=== PATIENT | male | born 1930 | race Caucasian/White ===

== ENCOUNTER 2016-07-02 11:43 | Emergency (ER) | payer OTHER ==
[~2016-07-02] VITALS: Ht 182.9 cm; Wt 90.0 kg
[~2016-07-02 11:43] MED LIST: COUM2.5T PO; METO50CR PO; NITR.4 SL; OMEP20TA39 PO
[2016-07-02 11:49] VITALS: BP 136/83; PULSE 121; RESP 12; TEMP 97.9; O2SAT 97
--- NOTE | 2016-07-02 12:36 | PD ---
HPI Chief Complaint: Injury Time Seen by Provider: 12:34 Travel History International Travel<30 days: No Contact w/Intl Traveler<30days: No Traveled to known affect area: No History of Present Illness HPI 85-year-old male presents to the emergency department for evaluation of right wrist injury that occurred on Thursday. He states that his life is falling and he was caught her and hit his wrist against the dresser. He has had worsening pain since then. Patient denies any fevers. He reports a history of hypertension and A. fib. He states he is currently on Coumadin. Patient reports increasing redness and warmth to the right wrist. Patient denies any other injuries or complaints at this time. PFSH Past Medical History Hx Anticoagulant Therapy: Yes (COUMADIN) Asthma: No Atrial Fibrillation: Yes Blood Disorders: No Anxiety: No Depression: No Heart Rhythm Problems: Yes (A FIB) Cancer: No Cardiovascular Problems: Yes High Cholesterol: Yes Chemotherapy: No Chest Pain: No Congestive Heart Failure: No COPD: No Diabetes: No Endocrine: Yes GERD: Yes Genitourinary: No Hypertension: Yes Immune Disorder: No Musculoskeletal: Yes (BACK PAIN FROM RECENT FALL) Neurologic: No Psychiatric: No Reproductive: No Respiratory: No Radiation Therapy: No Sleep Apnea: No Thyroid Disease: Yes Past Surgical History Body Medical Devices: PACER Pacemaker: Yes Social History Alcohol Use: No Tobacco Use: No Substance Use: No Allergies-Medications (Allergen,Severity, Reaction): Coded Allergies: No Known Allergies (Unverified , 07/02/16) Reported Meds & Prescriptions Reported Meds & Active Scripts Active Nitroglycerin Tab 0.4 Mg Sl (Nitroglycerin) 0.4 Mg Subl 0.4 Mg SL Q5M PRN If you develop chest pain, take 1 tablet, if unresolved, take another tab in 5 minutes, if it continues, take 1 more and call 911. Reported Levothyroxine (Levothyroxine Sodium) 25 Mcg Tab 25 Mcg PO DAILY Coumadin 2.5 mg (Warfarin Sodium) Warfarin Sodium 2.5 mg Tab 1 Tab PO DAILY Metoprolol Succinate ER 50 mg (Metoprolol Succinate) 50 Mg Tab 37.5 Tab PO BID Hm Omeprazole (Omeprazole) 20 Mg Tab 20 Mg PO DAILY Review of Systems Except as stated in HPI: all other systems reviewed are Neg Physical Exam Narrative GENERAL: Well-developed well-nourished elderly male patient, ambulatory. Afebrile. SKIN: Warm and dry. Patient has erythema and warmth from the MCP joints to the mid forearm with tenderness to palpation. HEAD: Normocephalic. Atraumatic. EYES: No scleral icterus. No injection or drainage. NECK: Supple, trachea midline. No JVD or lymphadenopathy. CARDIOVASCULAR: Regular rate and rhythm without murmurs, gallops, or rubs. RESPIRATORY: Breath sounds equal bilaterally. No accessory muscle use. Lungs sounds clear to auscultation. GASTROINTESTINAL: Abdomen soft, non-tender, nondistended. MUSCULOSKELETAL: No cyanosis, or edema. BACK: No CVA tenderness. No rash. Data Data Last Documented VS Vital Signs Date Time Temp Pulse Resp B/P Pulse Ox O2 Delivery O2 Flow Rate FiO2 07/02/16 11:49 97.9 121 12 136/83 97 Room Air Orders Complete Blood Count With Diff (07/02/16 12:33) Basic Metabolic Panel (Bmp) (07/02/16 12:33) Prothrombin Time / Inr (Pt) (07/02/16 12:33) Act Partial Throm Time (Ptt) (07/02/16 12:33) Wrist, Complete ([id number]) (07/02/16 ) Hand, Complete ([id number]) (07/02/16 ) Electrocardiogram (07/02/16 ) Splinting (07/02/16 ) Labs Laboratory Tests Test 07/02/16 12:55 White Blood Count 12.0 TH/MM3 Red Blood Count 5.01 MIL/MM3 Hemoglobin 16.0 GM/DL Hematocrit 47.2 % Mean Corpuscular Volume 94.2 FL Mean Corpuscular Hemoglobin 32.0 PG Mean Corpuscular Hemoglobin 34.0 % Concent Red Cell Distribution Width 13.3 % Platelet Count 216 TH/MM3 Mean Platelet Volume 8.6 FL Neutrophils (%) (Auto) 75.4 % Lymphocytes (%) (Auto) 15.7 % Monocytes (%) (Auto) 8.1 % Eosinophils (%) (Auto) 0.4 % Basophils (%) (Auto) 0.4 % Neutrophils # (Auto) 9.1 TH/MM3 Lymphocytes # (Auto) 1.9 TH/MM3 Monocytes # (Auto) 1.0 TH/MM3 Eosinophils # (Auto) 0.1 TH/MM3 Basophils # (Auto) 0.0 TH/MM3 CBC Comment DIFF FINAL Differential Comment Prothrombin Time 29.4 SEC Prothromb Time International 2.6 RATIO Ratio Activated Partial 44.0 SEC Thromboplast Time Sodium Level 137 MEQ/L Potassium Level 4.2 MEQ/L Chloride Level 104 MEQ/L Carbon Dioxide Level 24.3 MEQ/L Anion Gap 9 MEQ/L Blood Urea Nitrogen 15 MG/DL Creatinine 1.41 MG/DL Estimat Glomerular Filtration 48 ML/MIN Rate Random Glucose 139 MG/DL Calcium Level 8.8 MG/DL [facility] Medical Decision Making Medical Screen Exam Complete: Yes Emergency Medical Condition: Yes Medical Record Reviewed: Yes Differential Diagnosis Fracture versus cellulitis versus septic joint Narrative Course 85-year-old male presents to the emergency department for evaluation of worsening right wrist pain after he hit it against a dresser on Thursday. Physical exam reveals erythema and warmth over the right wrist and hand. CBC, BMP, PTT, PT/INR ordered and pending. X-ray of the right wrist and right hand are ordered and pending. Workup is initiated in triage. Patient will be moved to medical pod for further evaluation and disposition. Marion Agosto Jul 02, 2016 12:36
[2016-07-02 13:41] LABS: AUTOMATED NEUTROPHIL # 9.1 TH/MM3 (1.8-7.7); BASOPHIL % 0.4 % (0.0-2.0); EOSINOPHIL # 0.1 TH/MM3 (0-0.4); EOSINOPHIL % 0.4 % (0.0-4.0); HEMATOCRIT 47.2 % (39.0-51.0); HEMO FLAGS DIFF FINAL; LYMPH % 15.7 % (9.0-44.0); LYMPHOCYTE # 1.9 TH/MM3 (1.0-4.8); MEAN CELL VOLUME 94.2 FL (80.0-100.0); MONO % 8.1 % (0.0-8.0); NEUT % 75.4 % (16.0-70.0); PLATELET COUNT 216 TH/MM3 (150-450); RED BLOOD COUNT 5.01 MIL/MM3 (4.50-5.90); RED CELL DISTRIBUTION WIDTH 13.3 % (11.6-17.2)
--- NOTE | 2016-07-02 13:46 | RADRPT ---
EXAM DATE/TIME: 07/02/2016 12:53 [facility] COMPARISON: No previous studies available for comparison. INDICATIONS : Right wrist pain, fall. MEDICAL HISTORY : None. SURGICAL HISTORY : None. ENCOUNTER: Initial ACUITY: 1 day PAIN SCORE: 9/10 LOCATION: Right wrist FINDINGS: There are degenerative changes evident. Alignment is anatomic. Fracture is not appreciated. CONCLUSION: Degenerative changes without fracture. Darin Self MD FACR on July 02, 2016 at 13:15 Board Certified Radiologist. This report was verified electronically.
--- NOTE | 2016-07-02 13:47 | RADRPT ---
EXAM DATE/TIME: 07/02/2016 12:49 [facility] COMPARISON: No previous studies available for comparison. INDICATIONS : Right hand pain, fall. MEDICAL HISTORY : None. SURGICAL HISTORY : None. ENCOUNTER: Initial ACUITY: 1 day PAIN SCORE: 6/10 LOCATION: Right lateral hand FINDINGS: There is a nondisplaced fracture of the radial styloid. Degenerative changes are seen in radial carp al joint. Degenerative changes are seen by the phalanges. CONCLUSION: Nondisplaced fracture of radial styloid. Darin Self MD FACR on July 02, 2016 at 13:14 Board Certified Radiologist. This report was verified electronically.
[2016-07-02 13:48] LABS: INTERNATIONAL NORMALIZED RATIO 2.6 RATIO; PROTHROMBIN TIME - PATIENT 29.4 SEC (9.8-11.6)
[2016-07-02 13:57] LABS: BICARBONATE 24.3 MEQ/L (21.0-32.0); POTASSIUM 4.2 MEQ/L (3.5-5.1)
--- NOTE | 2016-07-02 14:37 | PD ---
Data Data Last Documented VS Vital Signs Date Time Temp Pulse Resp B/P Pulse Ox O2 Delivery O2 Flow Rate FiO2 07/02/16 16:12 92 123/70 95 07/02/16 11:49 97.9 12 Room Air Orders Complete Blood Count With Diff (07/02/16 12:33) Basic Metabolic Panel (Bmp) (07/02/16 12:33) Prothrombin Time / Inr (Pt) (07/02/16 12:33) Act Partial Throm Time (Ptt) (07/02/16 12:33) Wrist, Complete ([id number]) (07/02/16 ) Hand, Complete ([id number]) (07/02/16 ) Electrocardiogram (07/02/16 ) Splinting (07/02/16 ) Fiberglass Splint Forearm Adul (07/02/16 ) Sling Cradle Arm (07/02/16 ) Labs Laboratory Tests Test 07/02/16 12:55 White Blood Count 12.0 TH/MM3 Red Blood Count 5.01 MIL/MM3 Hemoglobin 16.0 GM/DL Hematocrit 47.2 % Mean Corpuscular Volume 94.2 FL Mean Corpuscular Hemoglobin 32.0 PG Mean Corpuscular Hemoglobin 34.0 % Concent Red Cell Distribution Width 13.3 % Platelet Count 216 TH/MM3 Mean Platelet Volume 8.6 FL Neutrophils (%) (Auto) 75.4 % Lymphocytes (%) (Auto) 15.7 % Monocytes (%) (Auto) 8.1 % Eosinophils (%) (Auto) 0.4 % Basophils (%) (Auto) 0.4 % Neutrophils # (Auto) 9.1 TH/MM3 Lymphocytes # (Auto) 1.9 TH/MM3 Monocytes # (Auto) 1.0 TH/MM3 Eosinophils # (Auto) 0.1 TH/MM3 Basophils # (Auto) 0.0 TH/MM3 CBC Comment DIFF FINAL Differential Comment Prothrombin Time 29.4 SEC Prothromb Time International 2.6 RATIO Ratio Activated Partial 44.0 SEC Thromboplast Time Sodium Level 137 MEQ/L Potassium Level 4.2 MEQ/L Chloride Level 104 MEQ/L Carbon Dioxide Level 24.3 MEQ/L Anion Gap 9 MEQ/L Blood Urea Nitrogen 15 MG/DL Creatinine 1.41 MG/DL Estimat Glomerular Filtration 48 ML/MIN Rate Random Glucose 139 MG/DL Calcium Level 8.8 MG/DL [facility] Supervised Visit with KIMBERLEE: Yes Differential Diagnosis EKG shows age fibrillation without acute ST-T changes. Rate is well- controlled. Evidence for completed inferior infarct. Prior EKG was ventricular demand pacing. This an abnormal EKG. Narrative Course Patient care assumed from Marion VARGAS. Patient was seen as part of provider in triage screening. Briefly this is a patient who injured his right wrist a few days ago. Patient states he's been having some pain and swelling particularly on the ulnar aspect of his wrist since then. X-rays were obtained in triage and do show a nondisplaced radial styloid fracture. Close review of the x-ray showed no injury to the ulnar aspect. On my physical exam the patient appears generally than stated age pulse motor and sensory are intact in all 4 extremities cap refill is brisk in all digits of the right upper extremity. All range of motion's are intact in the fingers as well as wrist. Elbow is within normal limits. Patient does have some mild swelling on the ulnar aspect of his head dorsum of his hand as well as the distalmost forearm. There possibly is a little bit of erythema overlying the swelling but no focalized fluctuance and no abscesses skin is intact. The skin is warm to touch but certainly not hot and no elevation in temperature compared to the opposite extremity. Patient heart rate in triage was documented as 120. Manually taken by me at the time of exam it is 96. An EKG is obtained which shows age fibrillation with an overall rate of 86. 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 He does have a pacemaker different later in place. His labs are reassuring. Impression is a radial styloid fracture with possible early cellulitis. Age fibrillation with rate well controlled and no chest pain or shortness of breath. He is stable for discharge at this time. Discussed need for follow-up with orthopedics and he is referred to Dr. Beckett however he has seen an orthopedist in the past medical and may follow with his own orthopedist. Diagnosis Primary Impression: Radial styloid fracture Qualified Code: S52.514A - Closed nondisplaced fracture of styloid process of right radius, initial encounter Additional Impression: Cellulitis Referrals: Iftikhar Villaseñor MD Med/Other Pt SpecificInfo: Prescription(s) given Scripts Tramadol (Ultram)50 Mg Tab50 Mg PO Q6H PRN (PAIN) #15 TAB Ref 0 Prov:Aryan Goff MD 07/02/16 Cephalexin (Keflex)500 Mg [id number] Mg PO Q6H 7 Days Ref 0 Prov:Aryan Goff MD 07/02/16 Disposition: 01 DISCHARGE HOME Condition: Stable Aryan Goff MD Jul 02, 2016 14:37
[2016-07-02] MEDS ORDERED: LEVO25TA4 PO (14:51)
[2016-07-02] MEDS ORDERED: CEPH-460 PO (16:04)
[2016-07-02] MEDS ORDERED: ULTR50TA5 PO (16:04)
[2016-07-02 16:12] VITALS: BP 123/70
--- NOTE | 2016-07-03 05:06 | EKG ---
Date Performed: 07/02/2016 Time Performed: 15:53:07 PTAGE: 85 years EKG: ATRIAL FIBRILLATION POSSIBLE INFERIOR MYOCARDIAL INFARCTION ABNORMAL ECG COMPARED TO PRIOR ELECTROCARDIOGRAM, Bundle branch block or ventricular demand pacemaker are no longer seen. PREVIOUS TRACING : 03/19/2014 14.52 DOCTOR: Honorio Dickson Interpretating Date/Time 07/03/2016 05:04:35
== END 2016-07-02 16:15 | disposition home or self-care (01) ==
LOC: NEPB 11:43
DX: S52.514A Nondisplaced fracture of right radial styloid process, initial encounter for closed fracture (principal); L03.113 Cellulitis of right upper limb; I48.91 Unspecified atrial fibrillation; R94.31 Abnormal electrocardiogram [ECG] [EKG]; I10 Essential (primary) hypertension; E07.9 Disorder of thyroid, unspecified; E78.00 Pure hypercholesterolemia, unspecified; Z95.0 Presence of cardiac pacemaker; Z79.01 Long term (current) use of anticoagulants; Z87.19 Personal history of other diseases of the digestive system; Z87.39 Personal history of other diseases of the musculoskeletal system and connective tissue; W22.09XA Striking against other stationary object, initial encounter; Y93.F9 Activity, other caregiving
CPT/HCPCS: 29125; 73110; 73130; 80048; 85025; 85610; 85730; 93005